=== PATIENT | female | born 1995 | race Caucasian/White ===

== ENCOUNTER 2017-09-07 17:30 | Emergency (ER) | payer BC, SELFPAY ==
--- NOTE | 2017-09-07 17:30 | DT_ITS ---
This patient was seen during an EMR downtime September 04, 2017 - September 11, 2017. This patient may have a combination of paper and electronic documentation or all paper documentation. All documentation is viewable within the e-chart portion of [employer] for each patient visit.
--- NOTE | 2017-09-07 19:02 | CT_ITS ---
STUDY: CT ABDOMEN AND PELVIS WITH CONTRAST REASON FOR EXAM: Female, 22 years old. Lower abdominal pain TECHNIQUE: Transaxial images were obtained from the dome of the diaphragm to the symphysis pubis without oral contrast. Intravenous contrast was administered. Sagittal and coronal images were reconstructed. Individualized dose optimization techniques were used for this CT. COMPARISON: None. FINDINGS: The visualized lung bases are unremarkable. The visualized portions of the heart are within normal limits. Normal liver. Normal gallbladder and extrahepatic biliary system. Normal spleen. Normal pancreas. Normal bilateral adrenal glands. Normal right kidney. Normal left kidney. Normal visualized stomach. Normal small intestine. Normal colon. The appendix is slightly fluid distended with appendicoliths. Although no appendiceal wall thickening is noted. Normal abdominal aorta. Normal inferior vena cava. Normal retroperitoneum. There are mesenteric nodes up to 1.5 cm, more significantly in the right lower quadrant. Normal urinary bladder. Normal uterus. Left adnexal 2.9 x 2.4 cm cystic lesion is noted posterior to the uterus. Normal abdominal wall. Normal osseous structures. IMPRESSION: Left adnexal cystic lesion posterior to the uterus. Fluid distended appendix with appendicoliths. Although no inflammation is appreciated. Mesenteric nodes more significant in the right lower quadrant. N.B. : The above information has been verbally conveyed by Venancio Hubbard MD to Dr. Dutton, Covering Physician, on 09/09/2017 11:20:40 (ET). Electronically Signed: Nicholas Madera DO at 19:45 EDT Tel [phone], Service support , STUDY: CT ABDOMEN AND PELVIS WITH CONTRAST REASON FOR EXAM: Female, 22 years old. Lower abdominal pain. RADIATION DOSAGE (If Supplied By Facility): CTDIvol = ( 14.24 ) mGy, DLP = ( 766.41 ) mGycm TECHNIQUE: Transaxial images were obtained from the dome of the diaphragm to the symphysis pubis with oral contrast. 100ml ml of Isovue 300 contrast was administered. Sagittal and coronal images were reconstructed. Individualized dose optimization techniques were used for this CT. COMPARISON: None. FINDINGS: The visualized lung bases are unremarkable. The visualized portions of the heart are within normal limits. Normal liver. Normal gallbladder and extrahepatic biliary system. Normal spleen. Normal pancreas. Normal bilateral adrenal glands. Normal right kidney. Normal left kidney. Normal visualized stomach. Normal small intestine. Normal colon. Abnormal thickening of the appendix proximal to the appendicolith. The appendix distal to the appendicolith is not thickened or inflamed. Normal abdominal aorta. Normal inferior vena cava. Normal retroperitoneum. Normal urinary bladder. Small free fluid in the left side of the cul-de-sac. The uterus and adnexa are normal. Normal abdominal wall. Normal osseous structures. CT/Abdomen/Pelvis WITH Contrast IMPRESSION: Suspicious mild acute appendicitis proximal to the appendicolith (series 2, images 82-86; series 601, images 49-53). N.B. : The above information has been verbally conveyed by Venancio Hubbard MD to Dr. Dutton, Covering Physician, on 09/09/2017 11:20:40 (ET). Electronically Signed: Venancio Hubbard MD at 10:27 EDT , Service support , N.B. : The above information has been verbally conveyed by Venancio Hubbard MD to Dr. Dutton, Covering Physician, on 09/09/2017 11:20:40 (ET).
[2017-09-09 11:45] LABS: AST(SGOT) 16 U/L (15-37); Alanine Aminotransfer ALT/SGPT 18 U/L (13-56); Albumin, Serum 3.8 g/dL (3.2-5.0); Alkaline Phosphatase 71 U/L (45-117); BUN 11 mg/dL (7-18); Creatinine, Serum 0.92 mg/dL (0.55-1.02); EST Glomerular Filtration Rate 80 mL/min (>60); Est Glom Filt Rate - Afr Amer 97 mL/min (>60); Glucose 83 mg/dL (74-106); Lipase 93 U/L (73-393); Protein, Total 7.8 g/dL (6.4-8.2); Sodium Level 141 mmol/L (136-145)
[2017-09-09 11:46] LABS: Anion Gap 8 (5-15); Chloride 107 mmol/L (98-107); Potassium 3.9 mmol/L (3.5-5.1)
[2017-09-09 11:51] LABS: Bacteria 0 SEEN /hpf (None Seen); Color, Urine Straw (Yellow); Glucose, Dipstick NEGATIVE (Normal); Mucous, Urine 0 SEEN /hpf (<or=2+); Red Blood Cells-Urine 0 SEEN /hpf (0-5); Squamous Epithelial Cells - UA 0 SEEN /hpf (5-10); Urine Clarity Clear (Clear); White Blood Cells 0 SEEN /hpf (0-5)
[2017-09-09 11:52] LABS: Internal QC Validated? YES +Cl - CLEAR BKGD; Ketone-Dipstick Negative (Negative); Leukocyte Esterase-Dipstick Negative /ul (Negative); Nitrite-Dipstick Negative (Negative); Occult Blood-Urine 10 /ul (Negative); Protein-Dipstick Negative (Negative); Specific Gravity, Urine 1.005 (1.002-1.030); Urine Bilirubin Dipstick Negative (Negative); Urine Urobilinogen Normal (Normal)
[2017-09-09 11:53] LABS: Pregnancy, Urine Negative Negative
[2017-09-09 11:54] LABS: Red Blood Count 4.87 M/mm3 (4.2-5.4); White Blood Count 5.9 K/mm3 (4.4-11.0)
[2017-09-09 11:55] LABS: Basophil% 0.2 % (0-1); Hematocrit 42.5 % (37-47); Hemoglobin 14.4 g/dl (12.0-15.0); Lymphocyte % 27.6 % (19-41); Mean Corp Hgb Conc 33.9 g/gl (32-36); Mean Corpuscular Hgb 29.6 pg (27.0-32.0); Mean Corpuscular Volume 87.3 fL (81-99); Mean Platelet Vol. 10.5 fl (6.2-12.0); Monocyte% 9.4 % (0-10); Neutrophil % 61.6 % (47-70); POSITIVE COUNT NO; POSITIVE DIFFERENTIAL NO; POSITIVE MORPHOLOGY NO; Platelet Count 227 K/mm3 (150-450); RBC Distribution Width CV 13.2 % (11.6-14.6); RBC Distribution Width SD 42.1 fl (35.1-43.9)
[2017-09-09 11:56] LABS: Absolute Lymphocyte Count 1.62 X10^3/ul (0.83-4.51); Absolute Neutrophil Count 3.6 X10^3/uL (2.0-7.7); Basophil# 0.01 X10^3/uL; Eosinophil# 0.06 X10^3/uL; Lymphocyte # 1.62 X10^3/ul (4.0); Monocyte# 0.55 X10^3/uL; Neutrophil # 3.62 X10^3/uL (2.7-7.7)
== END 2017-09-07 21:40 | disposition home or self-care (01) ==
LOC: ED 09-08 10:44
PROVIDERS: Emergency Provider Emergency Medicine; Family Provider Pediatrics; PCP Pediatrics
DX: K38.1 Appendicular concretions (principal); I88.0 Nonspecific mesenteric lymphadenitis; E28.2 Polycystic ovarian syndrome
CPT/HCPCS: 36415; 74177; 80053; 81001; 81025; 83690; 85025; 96360; 96361; 99283; Q9967

== ENCOUNTER 2017-09-08 11:35 | Day surgery (SDC) | payer BC, SELFPAY ==
--- NOTE | 2017-09-08 | APP_PTH ---
PATIENT: ALDA [place] [facility] [id number] AGE/SX: 22/ ROOM: RE09/08/[address]: Dr. Ashley Thurman MD : 1995 BED: DIS: 09/08/2017 SPEC #: [id number] RECD: 09/12/17 13:08 STATUS: RICHARD OSCAR #: [id number] MACO: 09/08/17 00:[address]: Ashley Thurman DEPT: SURGICAL PATHOLOGY RECD BY: Kyle Groves ENTERED: 09/12/17 13:08 SP TYPE: APPENDIX OTHR DR: Dr. Homero Ortega MD Tissues: Appendix, NOS Procedures: Surgery Specimen Level IV HEADER OPERATION: Lap appendectomy PRE-OP DIAGNOSIS: TISSUE SUBMITTED: Appendix MICROSCOPIC DIAGNOSIS Appendix, appendectomy: Appendix with adenomatous changes involving the tip and middle portion. See comment. HUGO:cynthia 09/13/17 COMMENT The entire specimen is examined. Proximal protion appears free of adenomatous changes. Sections with adenomatous changes also show luminal calcifications, consistent with fecalith. Case has been reviewed in consultation with Dr. Gilbert who concurs with the above diagnosis. IDC:AM MICROSCOPIC DESCRIPTION Slides are reviewed. GROSS DESCRIPTION Received is one container labeled with the patient's name and designated appendix. The specimen consists of an appendix measuring 4 cm in length and up to 1.2 cm in average diameter. The attached periappendiceal adipose tissue measures up to 1.5 cm in width. The serosa is congested. No obvious perforation is identified. The lumen does not contain fecal material. The entire appendix is submitted in two cassettes as follows: 1 ? tip and proximal portion, 2 ? rest of the appendix. / :cynthia 09/12/17 Sections of periappendiceal adipose tissue do not reveal any obviously enlarged lymph node. The rest of the specimen consisting of periappendiceal adipose tissue is submitted in two more cassettes, 3 & 4. / SJ:cynthia 09/13/17 TC:1 CPT: 48769
--- NOTE | 2017-09-08 11:35 | DT_ITS ---
This patient was seen during an EMR downtime September 04, 2017 - September 11, 2017. This patient may have a combination of paper and electronic documentation or all paper documentation. All documentation is viewable within the e-chart portion of [facility] for each patient visit.
--- NOTE | 2017-09-12 08:18 | OP.PCM_ITS ---
Report of Operation Date of Procedure: 09/08/17 Pre-Operative Diagnosis: Lower abdominal pain, dilated appendix, appendicolith Post-Operative Diagnosis: Same Surgery/Procedure Performed:: Laparoscopic appendectomy Type of Anesthesia:: General Anesthesiologist: Stephan Calderon Special Medications: Cefotetan 2 g IV ?1 Specimen's removed: Appendix Estimated Blood Loss (mL): <10 cc Description of Procedure: Indications: 22-year-old female presented to the ER with lower abdominal pain last night which is been ongoing for about 3-4 days. On workup she was found to have dilated appendix approximately with appendicolith on CT and normal white blood cell count. Description of the procedure: The patient was placed on operating table in supine position. General anesthesia was induced. A timeout was completed verifying correct patient, procedure, sacrum position and special, prior to beginning procedure. A De León catheter and orogastric tube placed. Abdomen was prepped and draped in usual sterile fashion. Incision was made in the natural skin line above the umbilicus with a 15 blade scalpel. The fascia was elevated and incised. Entry into the peritoneum was confirmed visually and no bowel was noted in the vicinity of the incision. The Greer trocar was placed under direct vision. Abdomen insufflated with a pressure of 12-15 mmHg. Patient tolerated insertion well. The scope was inserted and the abdomen inspected. No injuries from initial trocar placement were noted. Minimal amount of fluid was seen in the right lower quadrant. An direct visualization 2 -5 mm trocars were placed one above the symptoms his pubis and below the hairline and one in the left lower quadrant lateral to the rectus muscle. Care is taken to avoid injury to the bladder and inferior epigastric vessels. The table was placed in Trendelenburg position with the right side elevated. The appendix was grasped with atraumatic grasper and elevated. It was noted to be dilated proximally. A window was developed in the mesoappendix at the point between the base of the appendix and the cecum. An endoscopic 45 mm linear cutting stapler blue load was then used to divide and staple the base of the appendix. It was reloaded with a vascular load and the mesoappendix similarly divided. The appendix was withdrawn into the Greer trocar after being placed endoscopically retrieval bag. Appendix was sent to pathology. The appendiceal stump was then irrigated and hemostasis was assured. Fluid was suctioned no other pathology was identified. Secondary trochars were removed under direct visualization. No bleeding was noted trocar sites. The laparoscope withdrawn and the umbilical trocar removed. The abdomen was allowed to collapse. Local anesthesia of 20 mL of 0.5 % Marcaine was used at the incision sites. The umbilical trocar site was closed with the [id number] 0 Vicryl suture. The skin was closed up to clear sutures of 4-0 Monocryl and Steri-Strips. The patient was extubated. The patient tolerated the procedure well and was taken to the postanesthesia care unit in satisfactory condition. - Complications none
== END 2017-09-08 18:18 | disposition home or self-care (01) ==
LOC: SDC 11:37 → AC 11:39
PROVIDERS: Family Provider Pediatrics; PCP Pediatrics; Visit Provider Surgery
PROC: 0DTJ4ZZ Resection of Appendix, Percutaneous Endoscopic Approach (ICD-10-PCS; CPT 44970; principal; 2017-09-08 09:50)
DX: K38.1 Appendicular concretions (principal); J45.990 Exercise induced bronchospasm
CPT/HCPCS: 00840; 44970; 88304; 88305; J7120; A4216; C1760; J2405